=== PATIENT | female | born 1980 | race Caucasian/White ===

== ENCOUNTER 2017-07-29 05:24 | Day surgery (SDC) | payer BC ==
[~2017-07-29] VITALS: Ht 167.6 cm; Wt 57.1 kg
[~2017-07-29 05:24] MED LIST: MULTIPLE VITAM1 EACH PO; ZYRTEC10 M2 PO
[2017-07-29 06:45] VITALS: BP 144/82
[2017-07-29 10:13] VITALS: BP 120/67
[2017-07-29] MEDS ORDERED: TORADOL10 MG PO (10:29)
[2017-07-29 11:10] VITALS: BP 122/70
[2017-07-29 14:10] VITALS: BP 110/64
[2017-07-29 15:25] VITALS: BP 115/67
== END 2017-07-29 15:25 | disposition home or self-care (01) ==
LOC: SDC 05:24
PROC: 0WUF4JZ Supplement Abdominal Wall with Synthetic Substitute, Percutaneous Endoscopic Approach (ICD-10-PCS; principal; 2017-07-29)
DX: K42.0 Umbilical hernia with obstruction, without gangrene (principal)
CPT/HCPCS: C1781; J0690; J1100; J1170; J1885; J2001; J2405; J2710; J2795; J3010; J3475; J7643; Q0175